=== PATIENT | female | born 1965 | race Caucasian/White ===

== ENCOUNTER → 2016-06-14 | Outpatient (CLI) | payer OTHER ==
--- NOTE | 2016-06-15 02:26 | REP ---
Clinical: Headaches . Technique: AP, lateral, flexion/extension, bilateral oblique, and open-mouth views. Findings: Alignment and lordosis is maintained. There is no evidence for acute fracture / compression injury or subluxation. No significant degenerative changes are appreciated. Oblique views demonstrate patent neural foramen. Open mouth view demonstrates normal C1-C2 articulation and odontoid process. Impression: Normal cervical spine series. Signed by Jame Gunn MD 06/15/2016 02:18 A
== END ==
LOC: M RAD 18:26
PROVIDERS: ATTEND Nurse Practitioner Family
DX: R51 Headache (principal)

== ENCOUNTER → 2016-06-14 | Outpatient (CLI) | payer OTHER ==
--- NOTE | 2016-06-14 19:19 | REP ---
MR BRAIN WITHOUT CONTRAST: HISTORY: Headaches. Several punctate areas of increased signal intensity on T2-weighted images are present in the subcortical white matter. This represents small vessel ischemic disease. There is no intraparenchymal hemorrhage, infarct, mass or midline shift. The ventricular system is normal in appearance. There is no extracerebral collection. Mucosal thickening is present in the left ethmoid and right sphenoid sinuses. IMPRESSION: Minimal small vessel ischemic disease. Signed by Clayton Vences MD 06/14/2016 07:20 P
== END ==
LOC: M RAD 18:14
PROVIDERS: ATTEND Nurse Practitioner Family
DX: I67.82 Cerebral ischemia (principal)

== ENCOUNTER 2017-04-12 16:43 | Emergency (ER) | payer OTHER, SELFPAY ==
[~2017-04-12] VITALS: Ht 162.6 cm; Wt 59.1 kg
[2017-04-12] MEDS ORDERED: LISI-538 PO (16:52)
[2017-04-12] MEDS ORDERED: TOPR50TA PO (16:52)
[2017-04-12] MEDS ORDERED: KETOROLAC 60 MG/2 ML VIAL (J1885) IM ONE (17:45)
[2017-04-12] MEDS ORDERED: CYCL10TA PO (17:53)
[2017-04-12] MEDS ORDERED: IBUP-1022 PO (17:53)
[2017-04-12 18:38] VITALS: BP 118/76
== END 2017-04-12 18:49 | disposition home or self-care (01) ==
LOC: M ED 16:43
DX: S39.012A Strain of muscle, fascia and tendon of lower back, initial encounter (principal); X50.1XXA Overexertion from prolonged static or awkward postures, initial encounter; Y92.098 Other place in other non-institutional residence as the place of occurrence of the external cause; Y93.89 Activity, other specified; Y99.8 Other external cause status; I10 Essential (primary) hypertension; F17.200 Nicotine dependence, unspecified, uncomplicated; Z79.899 Other long term (current) drug therapy
CPT/HCPCS: 96372; 99283; J1885; J3360

== ENCOUNTER 2017-04-21 16:31 | Emergency (ER) | payer OTHER, SELFPAY ==
[~2017-04-21] VITALS: Ht 154.9 cm; Wt 57.7 kg
[2017-04-21 16:31] VITALS: BP 159/96
[~2017-04-21 16:31] MED LIST: CYCL10TA PO; IBUP-1022 PO; LISI-538 PO; TOPR50TA PO
[2017-04-21] MEDS ORDERED: CIPR-249 PO (17:28)
[2017-04-21] MEDS ORDERED: DIFL150T PO (17:32)
== END 2017-04-21 17:38 | disposition home or self-care (01) ==
LOC: M ED 16:31
DX: N39.0 Urinary tract infection, site not specified (principal); R31.9 Hematuria, unspecified; I10 Essential (primary) hypertension; F17.210 Nicotine dependence, cigarettes, uncomplicated; Z79.899 Other long term (current) drug therapy

== ENCOUNTER 2017-05-28 11:32 | Emergency (ER) | payer SELFPAY, MEDICAID ==
[2017-05-28] MEDS: diazePAM 5 MG TAB PO (13:24)
[2017-05-28] MEDS: KETOROLAC 60 MG/2 ML VIAL (J1885) IM (13:25)
== END 2017-05-28 14:19 | disposition home or self-care (01) ==
LOC: M ED 11:32
DX: M54.5 Low back pain (principal); I10 Essential (primary) hypertension; F17.200 Nicotine dependence, unspecified, uncomplicated
CPT/HCPCS: J1885

== ENCOUNTER → 2017-06-12 | Outpatient (CLI) | payer SELFPAY | LOC: M RAD 12:32 | DX: M54.16 Radiculopathy, lumbar region (principal) | CPT/HCPCS: 72110 ==

== ENCOUNTER → 2017-06-13 | Outpatient (CLI) | payer MEDICAID, SELFPAY | LOC: M RAD 18:12 | DX: M54.16 Radiculopathy, lumbar region (principal); M51.37 Other intervertebral disc degeneration, lumbosacral region; M48.07 Spinal stenosis, lumbosacral region | CPT/HCPCS: 72148 ==

== ENCOUNTER → 2018-10-14 | Outpatient (CLI) | payer MEDICAID, SELFPAY ==
[~2018-10-14] MED LIST changes: +CIPR-249 PO; +DIFL150T PO; +IBUP80TA PO; +VALI5TAB PO
== END ==
LOC: M LRY 08:00
PROVIDERS: ATTEND Family Medicine
DX: J02.9 Acute pharyngitis, unspecified (principal)

== ENCOUNTER → 2018-10-14 | Outpatient (REF) | payer MEDICAID, SELFPAY | LOC: M SFHCLERA 16:54 | PROVIDERS: ATTEND Nurse Practitioner Family | DX: J02.9 Acute pharyngitis, unspecified (principal) ==

== ENCOUNTER 2025-02-25 14:01 | Emergency (ER) | payer MEDICAID, SELFPAY ==
[~2025-02-25] VITALS: Ht 162.6 cm; Wt 58.2 kg
[~2025-02-25 14:01] MED LIST changes: +CYCL-707 PO; -CYCL10TA PO; -IBUP-1022 PO; +IBUP600T42 PO; -LISI-538 PO; +LISI20TA33 PO
[2025-02-25] MEDS: LIDOCAINE 2% MDV 20 ML VIAL SC ONE (14:42)
[2025-02-25 15:15] VITALS: BP 181/92; TEMP 97.6; O2SAT 100
[2025-02-25] MEDS: NEOSPORIN OINT 0.9 GM PKT TOP ONE (15:37)
== END 2025-02-25 15:43 | disposition home or self-care (01) ==
LOC: M ED 14:01
DX: S61.311A Laceration without foreign body of left index finger with damage to nail, initial encounter (principal); W26.8XXA Contact with other sharp object(s), not elsewhere classified, initial encounter; I10 Essential (primary) hypertension; M54.50 Low back pain, unspecified; F17.200 Nicotine dependence, unspecified, uncomplicated; Y92.009 Unspecified place in unspecified non-institutional (private) residence as the place of occurrence of the external cause; Y93.89 Activity, other specified; Y99.9 Unspecified external cause status; Z79.899 Other long term (current) drug therapy; Z79.1 Long term (current) use of non-steroidal anti-inflammatories (NSAID)